=== PATIENT | female | born 1940 | race Caucasian/White ===

== ENCOUNTER 2017-12-09 11:05 | Emergency (ER) | payer OTHER ==
[2017-12-09 11:28] VITALS: RESP 20
--- NOTE | 2017-12-09 12:55 | C.PDOC ---
Chief Complaint (Nursing): Dizziness/Lightheaded Past Medical History Vital Signs: Last Vital Signs Temp 98.3 F 12/09/17 11:23 Pulse 70 12/09/17 11:23 Resp 20 12/09/17 11:23 BP 137/87 12/09/17 11:23 Pulse Ox 98 12/09/17 11:23 - Social History Hx Alcohol Use: No Hx Substance Use: No - Immunization History Hx Tetanus Toxoid Vaccination: No Hx Influenza Vaccination: No Hx Pneumococcal Vaccination: No ED Course And Treatment O2 Sat by Pulse Oximetry: 98 Disposition - Disposition
--- NOTE | 2017-12-09 13:21 | C.PDOC ---
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 "I JUST FELT ANXIOUS WHEN IT WAS BLEEDING". 65 y/o female presents to the ER complaining of chapped lips and bleeding from lips. Patient states that she also has a cold for the past 1 month. She notes that she has chronic spots in her mouth. She used Vaseline without improvement, claims to be taking blood thinners, Aspirin, and "Daflon". 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 Limitations: no limitations Onset/Duration Of Symptoms: Days Current Symptoms Are (Timing): Still Present Severity: Moderate Past Medical History Reviewed: Historical Data, Nursing Documentation, Vital Signs Vital Signs: Last Vital Signs Temp 98.5 F 12/09/17 13:43 Pulse 69 12/09/17 13:43 Resp 20 12/09/17 13:43 BP 151/70 H 12/09/17 13:43 Pulse Ox 98 12/09/17 18:15 - Medical History PMH: No Chronic Diseases Other Surgeries: Hx of surgeries Family History: States: No Known Family Hx - Social History Hx Alcohol Use: No Hx Substance Use: No - Immunization History Hx Tetanus Toxoid Vaccination: No Hx Influenza Vaccination: No Hx Pneumococcal Vaccination: No Review Of Systems Except As Marked, All Systems Reviewed And Found Negative. Constitutional: Negative for: Fever, Chills Skin: Positive for: Other (chapped lips) Physical Exam - Physical Exam Appears: Non-toxic, No Acute Distress Skin: Normal Color, Warm, Dry, Other (no bruising, no purpura) Head: Atraumatic, Normacephalic Eye(s): bilateral: Normal Inspection Oral Mucosa: Moist Lips: No Swelling, No Laceration, Other (chapped lips, some chronic dark spots on lower lip) Cardiovascular: Rhythm Regular Respiratory: Normal Breath Sounds, No Rales, No Rhonchi, No Wheezing Neurological/Psych: Oriented x3, Normal Speech ED Course And Treatment O2 Sat by Pulse Oximetry: 98 (RA) Pulse Ox Interpretation: Normal Medical Decision Making Medical Decision Making: Internet search on Daflon shows that Daflon is a hemorrhoids medicine. Patient has been advised for over 30 minutes, reiterated that there are no signs of acute bleeding and signs of hematological abnormalities about alternatives for chapped lips such as soft diets and hydration. Patient has been discharged and instructed to follow up with her PMD. Disposition Counseled Patient/Family Regarding: Diagnosis, Need For Followup, Rx Given - Disposition Referrals: YOUR,PMD [Other] Disposition: HOME/ ROUTINE Disposition Time: 13:19 Condition: GOOD Additional Instructions: PARTIDA MEDICACIN ES PARA EL TRATAMIENTO DE HEMORROIDES. TOÑITO 1-2 LITROS DE AGUA DIARIAMENTE. APLIQUE BLISTEX U OTROS MEDICAMENTOS CON [place]. ALIMENTOS SUAVES. SEGUIMIENTO CON PARTIDA PMD. Forms: [employer] ([employer]) Print Language: MALTESE - Clinical Impression Clinical Impression: Chapped lips - Scribe Statement The provider has reviewed the documentation as recorded by the Susnaibe Natalia Ritter Provider Attestation: All medical record entries made by the Scribe were at my direction and personally dictated by me. I have reviewed the chart and agree that the record accurately reflects my personal performance of the history, physical exam, medical decision making, and the department course for this patient. I have also personally directed, reviewed, and agree with the discharge instructions and disposition.
[2017-12-09 13:44] VITALS: BP 151/70; PULSE 69; TEMP 98.5
[2017-12-09 13:46] VITALS: O2SAT 98
== END 2017-12-09 13:46 | disposition home or self-care (01) ==
LOC: C.ER 11:05
DX: T69.8XXA Other specified effects of reduced temperature, initial encounter (principal)

== ENCOUNTER 2017-12-09 20:12 | Emergency (ER) | payer OTHER ==
[2017-12-09 20:30] VITALS: BMI 23.8
--- NOTE | 2017-12-09 21:33 | C.PDOC ---
History Of Present Illness 77 y/o female presents to ED for complaints of lip bleeding that began earlier today. Patient was seen earlier today for similar complaint and discharged. Denies any blood thinner use, or any other physical complaints. Patient reports she has been using Vaseline for her chapped lips. Time Seen by Provider: 12/09/17 21:05 Chief Complaint (Nursing): Abnormal Skin Integrity History Per: Patient History/Exam Limitations: no limitations Onset/Duration Of Symptoms: Days Current Symptoms Are (Timing): Still Present Location Of Injury: Anterior: Mouth (Lip) Severity: Mild Pain Scale Rating Of: 1 Recent travel outside of the [place]: No Additional History Per: Family Past Medical History Reviewed: Historical Data, Nursing Documentation, Vital Signs Vital Signs: Last Vital Signs Temp 98.9 F 12/09/17 22:20 Pulse 87 12/09/17 22:20 Resp 16 12/09/17 22:20 BP 159/71 H 12/09/17 22:20 Pulse Ox 98 12/09/17 22:20 - Medical History PMH: No Chronic Diseases Family History: States: No Known Family Hx - Social History Hx Alcohol Use: No Hx Substance Use: No - Immunization History Hx Tetanus Toxoid Vaccination: No Hx Influenza Vaccination: No Hx Pneumococcal Vaccination: No Review Of Systems Constitutional: Negative for: Fever, Chills Gastrointestinal: Negative for: Nausea, Vomiting, Abdominal Pain, Diarrhea Skin: Positive for: Other (Lip bleeding ). Negative for: Rash Neurological: Negative for: Weakness, Numbness Physical Exam - Physical Exam Appears: Non-toxic, No Acute Distress, Other (Anxious ) Skin: Warm, Dry Oral Mucosa: Moist Lips: Other (Small pulsatile bleeding in the middle of the lower lip ) Gingiva: Normal Appearing Neurological/Psych: Oriented x3, Normal Speech Gait: Steady ED Course And Treatment - Laboratory Results Result Diagrams: 12/09/17 21:45 12/09/17 21:45 O2 Sat by Pulse Oximetry: 99 (RA) Pulse Ox Interpretation: Normal Progress Note: Injected 0.3 cc Lidocaine with Epinephrine 1%. Bleeding has stopped Disposition Counseled Patient/Family Regarding: Studies Performed, Diagnosis, Need For Followup - Disposition Referrals: [facility] [Outside] [facility] [Outside] Disposition: HOME/ ROUTINE Disposition Time: 21:33 Condition: FAIR Additional Instructions: Please return if symptoms recur. Should bleeding recur, do apply pressure for 5 -10 minutes Instructions: Mouth Sores (DC) Forms: [employer] (British) - Clinical Impression Clinical Impression: Lip injury - Scribe Statement The provider has reviewed the documentation as recorded by the Scribe Nato Yuan All medical record entries made by the Scribe were at my direction and personally dictated by me. I have reviewed the chart and agree that the record accurately reflects my personal performance of the history, physical exam, medical decision making, and the department course for this patient. I have also personally directed, reviewed, and agree with the discharge instructions and disposition.
[2017-12-09] MEDS ORDERED: Lidocaine 1%/Epinephrine 1:100000 30 ml vial IJ ONE ×2 (21:36→21:37)
[2017-12-09 21:51] LABS: BASO % 0.7 % (0.0-2.0); EOS % 0.9 % (0.0-4.0); HEMOGLOBIN 11.7 g/dL (11.0-16.0); LYMPH # 0.9 K/uL (1.0-4.3); LYMPH % 19.1 % (20.0-40.0); MEAN CELL VOLUME 82.2 fL (81.0-99.0); MEAN CORPUSCULAR HEMOGLOBIN 27.1 pg (27.0-31.0); MEAN CORPUSCULAR HGB CONC 32.9 g/dL (33.0-37.0); MEAN PLATELET VOLUME 8.2 fL (7.2-11.7); MONO # 0.4 K/uL (0.0-0.8); MONO % 9.9 % (0.0-10.0); NEUT # 3.1 K/uL (1.8-7.0); NEUT % 69.4 % (50.0-75.0); NRBC % 0.1 % (0.0-2.0); RBC 4.32 Mil/uL (3.80-5.20); RED CELL DISTRIBUTION WIDTH 13.8 % (11.5-14.5); WHITE BLOOD COUNT 4.5 K/uL (4.8-10.8)
[2017-12-09 21:54] LABS: INR 1.2; PROTHROMBIN TIME 13.1 SECONDS (9.7-12.2)
[2017-12-09 22:04] LABS: BLOOD UREA NITROGEN 18 mg/dL (7-17); GFR AFRICAN-AMERICAN > 60; GFR NON-AFRICAN AMERICAN > 60
[2017-12-10 00:07] VITALS: BP 112/66; PULSE 65; RESP 18; TEMP 97.9; O2SAT 97
--- NOTE | 2017-12-11 01:12 | CARD ---
APPROVED REPORT Date of service: 12/09/2017 EKG Measurement Heart [id number] <Conclusion> Normal sinus rhythm Nonspecific T wave abnormality Abnormal ECG
== END 2017-12-10 00:07 | disposition home or self-care (01) ==
LOC: C.ER 20:12
DX: S09.93XA Unspecified injury of face, initial encounter (principal); X58.XXXA Exposure to other specified factors, initial encounter; Y92.9 Unspecified place or not applicable